=== PATIENT | female | born 1975 | race Caucasian/White ===

== ENCOUNTER → 2020-08-29 | Outpatient (CLI) | payer OTHER ==
[2020-08-29 09:34] LABS: HEMOGLOBIN 16.5 gm/dl (12.3-15.3); RED BLOOD COUNT 5.49 M/UL (4.00-5.10); WHITE BLOOD COUNT 9.4 K/UL (4.5-11.0)
[2020-08-29 10:37] LABS: BUN/CREATININE RATIO 23 (0-10)
[2020-08-30 08:14] LABS: THYROXINE (T4) 8.5 ug/dL (4.5-12.0); VITAMIN D, 25-HYDROXY 15.8 ng/mL (30.0-100.0)
[2020-08-30 10:14] LABS: CREATININE, URINE 115.6 mg/dL (Not Estab.)
== END ==
LOC: LAB 08:53
PROVIDERS: Nurse Practitioner Family
DX: I10 Essential (primary) hypertension (principal); E11.9 Type 2 diabetes mellitus without complications; E78.5 Hyperlipidemia, unspecified; E55.9 Vitamin D deficiency, unspecified; R53.83 Other fatigue
CPT/HCPCS: 36415; 80053; 80061; 82043; 82570; 83036; 84436; 84443; 84480; 85025

== ENCOUNTER → 2020-11-01 | Outpatient (CLI) | payer OTHER ==
[2020-11-01 12:11] LABS: HEMOGLOBIN 15.4 gm/dl (12.3-15.3); RED BLOOD COUNT 5.05 M/UL (4.00-5.10)
[2020-11-01 12:32] LABS: BUN/CREATININE RATIO 29 (0-10)
[2020-11-02 08:15] LABS: THYROXINE (T4) 7.5 ug/dL (4.5-12.0); VITAMIN D, 25-HYDROXY 14.1 ng/mL (30.0-100.0)
== END ==
LOC: LAB 10:29
PROVIDERS: Nurse Practitioner
DX: E11.9 Type 2 diabetes mellitus without complications (principal); E83.42 Hypomagnesemia; J18.9 Pneumonia, unspecified organism; Z86.16 Personal history of COVID-19
CPT/HCPCS: 36415; 71046; 80053; 83036; 83735; 84436; 84443; 84480; 85025